=== PATIENT | female | born 1970 | race Caucasian/White ===

== ENCOUNTER 2019-12-11 07:51 | Outpatient (CLI) | payer OTHER, SELFPAY ==
--- NOTE | ~2019-12-11 | XR_ITS ---
EXAMINATION: XR hip LT min 3V w AP pelvis DATE: 12/11/2019 08:16 INDICATION: Left hip pain. TECHNIQUE: An anteroposterior view of the pelvis and 3 views of left hip were obtained. COMPARISON: Pelvis radiograph 01/16/2006 FINDINGS: Bone alignment is. No fracture. The hip joint spaces are normal. IMPRESSION: 1. Normal hips. Reviewed, dictated and finalized at location A. MILL OPERATOR IMPRESSION: 1. Normal hips.
[2019-12-11 09:33] LABS: Cholesterol 187 mg/dL (0-200); HDL Direct 40 mg/dL; Triglycerides 171 mg/dL (<150)
[2019-12-11 09:44] LABS: LDL Cholesterol Direct 120 mg/dL
[2019-12-11 11:18] LABS: Vitamin D 25 Hydroxy 31.1 ng/mL
== END 2019-12-11 07:52 | disposition home or self-care (01) ==
LOC: ANHIMG 07:56
PROVIDERS: PCP Family Medicine; Visit Provider Orthopaedic Surgery
DX: M70.62 Trochanteric bursitis, left hip (principal); E55.9 Vitamin D deficiency, unspecified; Z13.220 Encounter for screening for lipoid disorders; Z13.1 Encounter for screening for diabetes mellitus
CPT/HCPCS: 36415; 73502; 80061; 82306

== ENCOUNTER 2021-03-20 09:34 | Outpatient (CLI) | payer OTHER, SELFPAY ==
[2021-03-20 10:28] LABS: Basophils Percent Auto 0.2 % (0.2-1.2); Eosinophils Absolute Auto 0.1 K/mm3 (0-0.3); Eosinophils Percent Auto 1.7 % (0-4.4); Hematocrit 44.3 % (37.0-47.0); Hemoglobin 14.3 g/dL (12.0-15.0); Immature Granulocyte Absolute 0.03 K/mm3 (0.00-0.031); Immature Granulocyte Percent A 0.5 % (0-0.5); Immature Platelet Fraction Pct 6.4 % (0.9-11.2); Lymphocytes Absolute Auto 1.38 K/mm3 (0.9-3.2); Lymphocytes Percent Auto 23.3 % (18.3-44.2); Mean Corpuscular HGB Conc 32.3 g/dl (32-36); Mean Corpuscular Hemoglobin 29.5 pg (26-34); Mean Corpuscular Volume 91.3 fl (80-100); Mean Platelet Volume 11.4 fl (7.4-10.4); Monocytes Absolute Auto 0.5 K/mm3 (0.1-0.6); Monocytes Percent Auto 8.1 % (2.6-8.5); Neutrophils Absolute Auto 3.9 K/mm3 (1.3-6.7); Neutrophils Percent Auto 66.2 % (45.5-73.1); Platelet Count Result 145 k/mm3 (150-375); Red Blood Count 4.85 M/mm3 (4.2-5.4); Red Cell Distribution Width 13.2 % (11.5-14.5); White Blood Count 5.9 K/mm3 (4.5-10.0)
[2021-03-20 10:41] LABS: Add Urine Microscopic? YES; Appearance Urine Clear (Clear); Bilirubin Urine Negative (Negative); Blood Urine Negative (Negative); Color Urine Yellow (Yellow); Glucose Urine UA Negative (Negative); Ketones Urine Negative (Negative); Leukocyte Esterase Ur Trace LEU/UL (Negative); Mucus Urine Rare /lpf; Nitrate Urine Negative (Negative); Protein Urine Negative (Negative); RBC Urine 0-2 /hpf (0-2); Specific Grav Ur 1.018 (1.001-1.035); Squamous Epithelial Cell Urine Occasional /hpf (Few); Urobilinogen Urine Negative mg/dL (<2.0); WBC Urine 0-3 /hpf
[2021-03-20 10:45] LABS: Alanine Aminotransferase 29 U/L (4-35); Albumin Level 4.5 g/dL (3.5-5.1); Alkaline Phosphatase 85 U/L (38-126); Anion Gap 10 mmol/L (8-16); Aspartate Amino Transferase 34 U/L (14-36); Bilirubin,Total 0.5 mg/dL (0.2-1.3); Blood Urea Nitrogen 14 mg/dL (7-17); Calcium 9.7 mg/dL (8.4-10.2); Carbon Dioxide 24 mmol/L (22-30); Chloride 112 mmol/L (98-107); Estimated Glomerular Filt Rate 59; Glucose 100 mg/dL (65-105); Potassium 4.3 mmol/L (3.4-5.0); Sodium 146 mmol/L (137-145)
== END 2021-03-20 09:35 | disposition home or self-care (01) ==
PROVIDERS: PCP Family Medicine; Visit Provider Family Medicine
DX: R10.9 Unspecified abdominal pain (principal)
CPT/HCPCS: 36415; 80053; 81001; 85025; 85055

== ENCOUNTER 2021-03-22 17:32 | Outpatient (CLI) | payer OTHER, SELFPAY ==
--- NOTE | ~2021-03-22 | CT_ITS ---
EXAMINATION: CT abdomen pelvis wo con DATE: 03/22/2021 17:55 INDICATION: Abdominal pain TECHNIQUE: Computed tomography (CT) of the abdomen and pelvis was performed without intravenous contr ast. The dose-length product was 1405.89 mGy-cm. . Automated exposure control and iterative reconstru ction technique were employed. COMPARISON: CT dated 11/28/2017. FINDINGS: Lung bases are unremarkable. Heart size is normal. No significant pleural or pericardial ef fusion. The liver, spleen, pancreas, adrenal glands are unremarkable. There are nonobstructing bilate ral renal stones. Gallbladder is present. Nonobstructive bowel gas pattern. There are colonic diverti cula with subtle pericolonic stranding, suspicious for mild acute diverticulitis. No evidence for per foration or abscess. No lymphadenopathy. Small amount of gas in the bladder, likely from recent instr umentation. Mild lumbar spondylosis. No acute osseous abnormality. IMPRESSION: 1. Mild uncomplicated sigmoid diverticulitis. 2: Nonobstructing bilateral nephrolithiasis. Reviewed, dictated and finalized at location B.
== END 2021-03-22 17:33 | disposition home or self-care (01) ==
LOC: ANHIMG 17:35
PROVIDERS: PCP Family Medicine; Visit Provider Family Medicine
DX: N20.0 Calculus of kidney (principal); K57.32 Diverticulitis of large intestine without perforation or abscess without bleeding
CPT/HCPCS: 74176

== ENCOUNTER 2021-06-27 18:42 | Emergency (ER) | payer OTHER, SELFPAY ==
--- NOTE | ~2021-06-27 | CT_ITS ---
EXAMINATION: CT abdomen pelvis wo con DATE: 06/27/2021 20:55 INDICATION: Right flank pain. Hematuria. Nausea. TECHNIQUE: Computed tomography (CT) of the abdomen and pelvis was performed without intravenous contr ast. Automated exposure control and iterative reconstruction technique were employed. Exam dose: 156 2.52 mGy-cm total exam DLP. COMPARISON: None. FINDINGS: Lung bases are clear of infiltrate or consolidation. Cardiomegaly. The liver, gallbladder, bile ducts, spleen, pancreas, pancreatic duct and adrenal glands are unremark able. No renal mass lesion is detected. There is an approximately 5 mm proximal right ureteral calculus with mild right pelviectasis and hydr onephrosis. There is suggestion of two very subtle pinpoint nonobstructing left renal calculi. Normal appendix. There are multiple colonic diverticula, primarily on the left. No evidence of diverticulitis. No luisa wel obstruction or intraperitoneal free air. The uterus, adnexal areas and urinary bladder are unremarkable. Normal caliber aorta. No intraperitoneal or retroperitoneal or pelvic mass lesion or adenopathy or as cites is detected. No suspicious osteolytic or osteoblastic lesions are noted. IMPRESSION: 5 mm proximal right ureteral calculus with mild right pelviectasis and hydronephrosis. There is suggestion of two very subtle pinpoint nonobstructing left renal calculi Diverticulosis of the colon Normal appendix. Reviewed, dictated and finalized at Location A. Reviewed, dictated and finalized at location A. IMPRESSION: 5 mm proximal right ureteral calculus with mild right pelviectasis and hydronephrosis. There is suggestion of two very subtle pinpoint nonobstructing left renal calcu li Diverticulosis of the colon Normal appendix.
--- NOTE | 2021-06-27 18:57 | ED.ABDPAIN ---
HPI - Abdominal Pain General Chief Complaint: Abdominal Pain Stated Complaint: Right lower side pain Time Seen by Provider: 06/27/21 19:08 Source: patient Mode of arrival: ambulatory Limitations: no limitations History of Present Illness HPI narrative: 51-year-old woman with a history of diverticulitis comes in today complaining right-sided flank and abdominal pain that started 3 days ago. Patient states that the pain has gotten gradually worse since that time. She complains of nausea and poor appetite. She last ate at 14:30 today. She denies fever, chills, vomiting, diarrhea, dysuria, hematuria, and prior similar pain. MD elicited complaint: abdominal pain Pertinent past history: kidney stones ( States she has stones in her kidneys but has never passed any.) Onset (ago): day(s) Pain Consistency: constant Location: RLQ Severity: severe Pain scale (0-10): 9 Quality: sharp Radiation: none Migration to: no migration Exacerbating factors: nothing Relieving factors: nothing Associated symptoms: nausea Treatments prior to arrival: NSAIDs Related Data Home Medications Medication Instructions Recorded Confirmed doxycycline hyclate 50 mg tablet 50 mg PO DAILY 01/27/20 06/27/21 topiramate 50 mg tablet 100 mg PO BID 01/27/20 06/27/21 Allergies Allergy/AdvReac Type Severity Reaction Status Date / Time acetaminophen Allergy Unknown Unknown Unverified 06/27/21 19:01 Penicillins Allergy Unknown Swelling Verified 06/27/21 19:01 Sulfa (Sulfonamide Allergy Unknown Redness of Verified 06/27/21 19:01 Antibiotics) Skin latex Allergy Redness of Verified 06/27/21 19:01 Skin propoxyphene Allergy BURNING Verified 06/27/21 19:01 [From Darskylart-N] PROPOXYPHENE NAPSYLATE Allergy Unknown Unknown Uncoded 06/27/21 19:01 Review of Systems Constitutional: Constitutional: Denies chills, Denies fever(s) and Denies weakness Eyes: Eyes: Denies change in vision and Denies photophobia ENT: Denies dysphagia, Denies nasal congestion and Denies sore throat Cardiovascular: Cardiovascular: Denies chest pain and Denies radiating jaw, neck or arm pain Respiratory: Respiratory: Denies cough and Denies dyspnea Gastrointestinal: Gastrointestinal: Reports abdominal pain, Denies diarrhea, Reports nausea and Denies vomiting Genitourinary: Genitourinary: Denies hematuria, Denies nocturia and Denies dysuria Musculoskeletal: Musculoskeletal: Denies back pain, Denies arthralgias and Denies joint swelling Integumentary/Breasts: Skin/Breast: Denies pruritus, Denies erythema and Denies rash Neurologic: Denies vertigo, Denies dizziness and Denies syncope Hematologic/Lymphatic: Hematologic/Lymphatic: Denies easy bleeding and Denies easy bruising Allergic/Immunologic: Allergic/Immunologic: Denies lip swelling and Denies throat swelling PMFSH Past Medical History Medical History Diverticulitis Surgical History Surgical History H/O prior ablation treatment uterine 2006 H/O tubal ligation 1998 Family History Family History Mother Diabetes mellitus Hypertension Father Cancer Grandparent Cancer Social History Social History Smoking status: Never smoker Alcohol intake: never Additional occupation/education comments: [employer] Gender identity (if verbalized by the patient): Female Exam Const: General: healthy appearing and alert Orientation/consciousness: patient oriented x3 Limitations: no limitations Other: moderate acute distress. Eyes: Conjunctivae: conjunctivae normal Pupils: Equal, round and reactive pupils present EOM: EOMs intact bilaterally Resp: Effort & Inspection: normal respiratory effort and not labored Auscultation: clear to auscultation bilaterally,
[2021-06-27 18:58] VITALS: BP 154/99; PULSE 94; RESP 20; TEMP 36.6; O2SAT 100
[2021-06-27 19:32] LABS: Basophils Absolute Auto 0.01 K/mm3 (0.00-0.10); Basophils Percent Auto 0.2 % (0.0-1.0); Eosinophils Absolute Auto 0.09 K/mm3 (0.02-0.50); Eosinophils Percent Auto 1.5 % (1.0-6.0); Hematocrit 42.3 % (35.0-49.0); Hemoglobin 13.9 g/dL (12.0-15.0); Immature Granulocyte Absolute 0.02 K/mm3 (0.00-0.00); Immature Granulocyte Percent A 0.3 % (0.0-0.0); Immature Platelet Fraction Pct 3.9 % (1.0-7.0); Lymphocytes Absolute Auto 1.38 K/mm3 (1.10-4.50); Lymphocytes Percent Auto 22.4 % (18.0-42.0); Mean Corpuscular HGB Conc 32.9 g/dL (32.0-36.0); Mean Corpuscular Hemoglobin 29.6 pg (27.0-31.0); Mean Corpuscular Volume 90.2 fL (78.0-102.0); Mean Platelet Volume 10.9 fl (9.2-11.8); Monocytes Absolute Auto 0.52 K/mm3 (0.10-0.90); Monocytes Percent Auto 8.4 % (2.0-11.0); Neutrophils Absolute Auto 4.2 K/mm3 (1.7-7.2); Neutrophils Percent Auto 67.2 % (50.0-70.0); Platelet Count Result 126 K/mm3 (150-420); Red Blood Count 4.69 M/mm3 (4.20-5.40); Red Cell Distribution Width 13.4 % (11.6-14.4); White Blood Count 6.2 K/mm3 (4.8-10.8)
[2021-06-27] MEDS: SODIUM CHLORIDE 0.9% IV 1,000 ML 999 ML IV CONT (19:41)
[2021-06-27] MEDS: HYDROmorphone HCL INJ (*CRX) 2 MG/ML VIAL 0.5 MG IV PUSH ×2 (19:42→22:18)
[2021-06-27] MEDS: ONDANSETRON INJ 4 MG/2 ML VIAL IV PUSH (19:42)
[2021-06-27 19:45] LABS: Add Urine Microscopic? YES; Appearance Urine Clear (Clear); Bilirubin Urine Negative (Negative); Blood Urine 3+ (Negative); Color Urine Light Yellow (Yellow); Glucose Urine UA Negative (Negative); Ketones Urine Negative (Negative); Leukocyte Esterase Ur 1+ (Negative); Nitrate Urine Negative (Negative); Protein Urine Trace (Negative); Specific Grav Ur 1.025 (1.010-1.020); Urobilinogen Urine 0.2 mg/dL (0.2-1.0)
[2021-06-27 19:45] LABS: Alanine Aminotransferase 49 U/L (14-59); Albumin Level 4.1 g/dL (3.4-5.0); Alkaline Phosphatase 87 U/L (46-116); Anion Gap 14 mmol/L (8-16); Aspartate Amino Transferase 29 U/L (15-37); Bilirubin,Total 0.4 mg/dL (0.00-1.00); Blood Urea Nitrogen 16 mg/dL (7-18); Calcium 9.5 mg/dL (8.5-10.1); Carbon Dioxide 24 mmol/L (21-32); Chloride 108 mmol/L (98-108); Estimated CRCL calculation 72 ml/min; Estimated Glomerular Filt Rate 53; Glucose 107 mg/dL (70-99); Lipase 94 U/L (73-393); Osmolality Calculated 303 mOsm/kg (285-295); Potassium 3.5 mmol/L (3.5-5.1); Sodium 146 mmol/L (136-145); Total Protein 7.1 g/dL (6.4-8.2)
[2021-06-27 19:49] LABS: WBC Urine 0-3 /hpf (0-3)
[2021-06-27 19:50] LABS: Bacteria Urine Trace /hpf; Squamous Epithelial Cell Urine Rare /hpf (Few)
[2021-06-27 19:51] LABS: Lactic Acid Reflex 0.7 mmol/L (0.4-2.0)
[2021-06-27 20:31] LABS: SARS-CoV-2 Ag Negative (Negative)
[2021-06-27] MEDS: KETOROLAC 30 MG/ML VIAL (*BKC) IV PUSH (22:18)
[2021-06-27 22:44] VITALS: RESP 20; O2SAT 98
== END 2021-06-27 22:35 | disposition home or self-care (01) ==
PROVIDERS: Emergency Provider Emergency Medicine; PCP Family Medicine
DX: N20.1 Calculus of ureter (principal); Z20.822 Contact with and (suspected) exposure to COVID-19
CPT/HCPCS: 36415; 74176; 80053; 81001; 83605; 83690; 85025; 85055; 87426; 96361; 96374; 96375; 96376; 99283; 99284; C9803; J1170; J1885; J2405; J7030

== ENCOUNTER 2022-07-19 08:28 | Outpatient (CLI) | payer OTHER, SELFPAY ==
--- NOTE | ~2022-07-19 | MM_ITS ---
EXAMINATION: MM screening willem BI w cheryl HISTORY: Screening mammogram TECHNIQUE: Craniocaudal and mediolateral oblique 3-D tomosynthesis images were obtained and synthetic 2-D images were generated. CAD analysis was submitted and interpreted. COMPARISON: 07/30/2013 BREAST PARENCHYMAL COMPOSITION: The breasts are almost entirely fatty. FINDINGS: No suspicious mass, calcification, or architectural distortion are identified in either aniceto ast to suggest malignancy. There has been no suspicious interval change. IMPRESSION: 1. No mammographic evidence of malignancy. 2. Recommend routine screening mammography in one year. BI-RADS Category 1: Negative Reviewed, dictated and finalized at location B.
== END 2022-07-19 08:29 | disposition home or self-care (01) ==
PROVIDERS: PCP Family Medicine; Visit Provider Family Medicine
DX: Z12.31 Encounter for screening mammogram for malignant neoplasm of breast (principal)
CPT/HCPCS: 77063; 77067

== ENCOUNTER 2022-07-20 09:14 | Outpatient (CLI) | payer OTHER, SELFPAY ==
[2022-07-20 09:54] LABS: Anion Gap 11 mmol/L (8-16); Blood Urea Nitrogen 13 mg/dL (7-17); Calcium 9.2 mg/dL (8.4-10.2); Carbon Dioxide 23 mmol/L (22-30); Chloride 112 mmol/L (98-107); Cholesterol 166 mg/dL (0-200); Estimated Glomerular Filt Rate 59; Glucose 111 mg/dL (65-110); HDL Direct 40 mg/dL; Potassium 4.2 mmol/L (3.4-5.0); Sodium 146 mmol/L (137-145); Triglycerides 123 mg/dL (<150)
[2022-07-20 10:10] LABS: LDL Cholesterol Direct 99 mg/dL
[2022-07-20 10:12] LABS: Hemoglobin A1C 5.8 % (<5.7)
[2022-07-20 10:33] LABS: Basophils Percent Auto 0.2 % (0.2-1.2); Eosinophils Absolute Auto 0.1 K/mm3 (0-0.3); Eosinophils Percent Auto 1.4 % (0-4.4); Hematocrit 43.6 % (37.0-47.0); Hemoglobin 14.4 g/dL (12.0-15.0); Immature Granulocyte Absolute 0.03 K/mm3 (0.00-0.031); Immature Granulocyte Percent A 0.6 % (0-0.5); Immature Platelet Fraction Pct 5.4 % (0.9-11.2); Lymphocytes Absolute Auto 1.13 K/mm3 (0.9-3.2); Lymphocytes Percent Auto 22.6 % (18.3-44.2); Mean Corpuscular Hemoglobin 30.1 pg (26-34); Mean Platelet Volume 11.7 fl (7.4-10.4); Monocytes Absolute Auto 0.4 K/mm3 (0.1-0.6); Monocytes Percent Auto 8.6 % (2.6-8.5); Neutrophils Absolute Auto 3.3 K/mm3 (1.3-6.7); Neutrophils Percent Auto 66.6 % (45.5-73.1); Platelet Count Result 135 k/mm3 (150-375); Red Blood Count 4.79 M/mm3 (4.2-5.4); Red Cell Distribution Width 13.6 % (11.5-14.5)
[2022-07-20 11:01] LABS: Folic Acid 7.4 ng/mL (2.76->20)
[2022-07-20 11:37] LABS: Iron 68 ug/dL (37-170)
[2022-07-20 11:45] LABS: Vitamin D 25 Hydroxy 30.3 ng/mL
[2022-07-20 11:47] LABS: Percent Iron Saturation 21 % (20-50)
== END 2022-07-20 09:15 | disposition home or self-care (01) ==
PROVIDERS: PCP Family Medicine; Visit Provider Family Medicine
DX: E55.9 Vitamin D deficiency, unspecified (principal); L65.9 Nonscarring hair loss, unspecified; Z00.00 Encounter for general adult medical examination without abnormal findings; R53.83 Other fatigue; R73.9 Hyperglycemia, unspecified; Z13.1 Encounter for screening for diabetes mellitus; Z13.220 Encounter for screening for lipoid disorders
CPT/HCPCS: 36415; 80048; 80061; 82306; 82607; 82728; 82746; 83036; 83540; 83550; 83735; 84443; 85025; 85055

== ENCOUNTER 2022-07-23 01:31 | Day surgery (SDC) | payer OTHER, SELFPAY ==
[2022-07-05 13:17] VITALS: BMI 45.1
[2022-07-23 09:48] VITALS: BP 153/83; PULSE 80; RESP 18; TEMP 36.4; O2SAT 100; BMI 45.2
--- NOTE | 2022-07-23 09:51 | P.PNAN_ITS ---
Anes - Initial Pre Proc Eval Procedure: Operation Date: 07/23/22 11:00 Proposed Procedures p Screening Colonoscopy - Nilesh Sigala MD Date/Time: 07/23/22 09:51 Surgeon: Nilesh Sigala MD Pre Op Diagnosis: neoplasm screening Patient Data Age: 52 Gender: F Height: 1.68 m Weight: 127.2 kg Last Vital Signs Temp 97.6 F 07/23/22 09:48 Pulse 80 07/23/22 09:48 Resp 18 07/23/22 09:48 BP 153/83 H 07/23/22 09:48 Pulse Ox 100 07/23/22 09:48 O2 Del Method Room Air 07/23/22 09:48 Allergies Allergy/AdvReac Type Severity Reaction Status Date / Time Penicillins Allergy Unknown Swelling Verified 07/23/22 09:47 Sulfa (Sulfonamide Allergy Unknown Redness of Verified 07/23/22 09:47 Antibiotics) Skin latex Allergy Redness of Verified 07/23/22 09:47 Skin propoxyphene Allergy BURNING Verified 07/23/22 09:47 [From Darvocet-N] PROPOXYPHENE NAPSYLATE Allergy Unknown Unknown Uncoded 06/27/21 19:01 Home Medications Medication Instructions Recorded Confirmed Type doxycycline hyclate 50 mg tablet 50 mg PO DAILY 01/27/20 07/23/22 History topiramate 50 mg tablet (Topamax) 100 mg PO DAILY 01/27/20 07/23/22 History ibuprofen 800 mg tablet 800 mg PO TID PRN Pain 07/05/22 07/23/22 History Patient hx anesthesia problems: none Family hx anesthesia problems: none Results Review: All pre-operative results and documents have been reviewed as part of the pre- operative evaluation. [facility] Past Medical History Medical History Diverticulitis Surgical History Surgical History H/O prior ablation treatment uterine 2005 H/O tubal ligation 1998 Family History Family History Mother Diabetes mellitus Hypertension Father Cancer Grandparent Cancer Social History Social History Smoking status: Never smoker Alcohol intake: never Substance use type: does not use Living arrangements: with family Additional occupation/education comments: [employer] Gender identity (if verbalized by the patient): Female Anes - Eval Final PreProcedure Day of Procedure 07/23/22 09:51 Patient weight: morbidly obese Heart: regular rate and rhythm Lungs: clear to auscultation Airway: Mallampati scale class II Neurological: alert and oriented Last oral intake: >/= 8 hours ASA classification: III Emergent: no Anesthetic plan: proceed Anesthesia type and monitoring: general GIVS and standard monitoring Results Review: All pre-operative results and documents have been reviewed as part of the pre- operative evaluation. Informed Consent: The patient's anesthetic plan and its attendant risks and benefits were discussed with the patient/family/POA. Questions were solicited and answers provided to the satisfaction of the patient/family/POA.
[2022-07-23] MEDS: LACTATED RINGERS 1,000 ML 150 ML IV CONT (10:00)
--- NOTE | 2022-07-23 10:28 | PM.HPGS ---
History of Present Illness History of Present Illness Consent: Risks, benefits, and alternatives have been discussed and questions answered. Patient agrees to proceed with procedure. Chief complaint: neoplasm screening Narrative: Yoanna Cherry is a 52 year old female here for first screening colonoscopy Review of Systems Constitutional: Constitutional: Denies headache(s) and Denies weakness Eyes: Eyes: Denies blurry vision ENT: Reports Normal hearing present, Denies headache(s) and Denies neck pain Cardiovascular: Cardiovascular: Denies chest pain and Denies dyspnea Respiratory: Respiratory: Denies dyspnea Gastrointestinal: Gastrointestinal: Reports no additional gastrointestinal complaints Genitourinary: Genitourinary: Denies dysuria Musculoskeletal: Musculoskeletal: Denies neck pain Integumentary/Breasts: Skin/Breast: Denies dry skin Neurologic: Reports Normal hearing present, Denies headache(s) and Denies weakness Psychiatric: Psychiatric: Denies anxiety Endocrine: Endocrine: Denies change in body appearance Hematologic/Lymphatic: Hematologic/Lymphatic: Denies easy bleeding Allergic/Immunologic: Allergic/Immunologic: Denies urticaria PMFSH Past Medical History Medical History (Updated 07/23/22 @ 10:28 by Nilesh Sigala MD) Colon cancer screening Diverticulitis Surgical History Surgical History H/O prior ablation treatment uterine 2006 H/O tubal ligation 1998 Family History Family History Mother Diabetes mellitus Hypertension Father Cancer Grandparent Cancer Social History Social History Smoking status: Never smoker Alcohol intake: never Substance use type: does not use Living arrangements: with family Additional occupation/education comments: [employer] Gender identity (if verbalized by the patient): Female Meds Home Medications and Allergies Home Medications Medication Instructions Recorded Confirmed Type doxycycline hyclate 50 mg tablet 50 mg PO DAILY 01/27/20 07/23/22 History topiramate 50 mg tablet (Topamax) 100 mg PO DAILY 01/27/20 07/23/22 History ibuprofen 800 mg tablet 800 mg PO TID PRN Pain 07/05/22 07/23/22 History Allergies Allergy/AdvReac Type Severity Reaction Status Date / Time Penicillins Allergy Unknown Swelling Verified 07/23/22 09:47 Sulfa (Sulfonamide Allergy Unknown Redness of Verified 07/23/22 09:47 Antibiotics) Skin latex Allergy Redness of Verified 07/23/22 09:47 Skin propoxyphene Allergy BURNING Verified 07/23/22 09:47 [From Darvocet-N] PROPOXYPHENE NAPSYLATE Allergy Unknown Unknown Uncoded 06/27/21 19:01 Vital Signs Vital Signs - 24 hr 07/23/22 09:48 Temperature 97.6 F Pulse Rate 80 Respiratory Rate 18 Blood Pressure 153/83 H Pulse Oximetry 100 Oxygen Delivery Room Air Exam Const: General: comfortable and no acute distress HENMT: Face/Nose/Sinus: Normal nares present Eyes: General: appearance normal, both eyes and all related structures Neck: Neck: no JVD Resp: Auscultation: clear to auscultation bilaterally Cardio: Rate: regular rate Rhythm: regular rhythm GI: Inspection: non-distended GI Palp: Yes Soft to palpation Skin: General skin exam: normal color Neuro: General: gait normal Speech: normal speech Extrem: General: normal to inspection Psych: Mental Status: mental status grossly normal Assessment and Plan Assessment and plan (1) Colon cancer screening: Code(s): Z12.11 - Encounter for screening for malignant neoplasm of colon Status: Acute Assessment and Plan: colonoscopy
[2022-07-23 10:56] VITALS: BP 107/65; PULSE 82; RESP 17; O2SAT 94
[2022-07-23 11:06] VITALS: BP 121/76; PULSE 71; RESP 16; O2SAT 99
[2022-07-23 11:16] VITALS: BP 120/81; PULSE 70; RESP 23; O2SAT 99
== END 2022-07-23 11:38 | disposition home or self-care (01) ==
PROVIDERS: PCP Family Medicine; Visit Provider Internal Medicine Gastroenterology
PROC: 0DJD8ZZ Inspection of Lower Intestinal Tract, Via Natural or Artificial Opening Endoscopic (ICD-10-PCS; CPT 45378; principal; 2022-07-23 11:00)
DX: Z12.11 Encounter for screening for malignant neoplasm of colon (principal); D12.0 Benign neoplasm of cecum; D12.3 Benign neoplasm of transverse colon; K57.30 Diverticulosis of large intestine without perforation or abscess without bleeding; D17.5 Benign lipomatous neoplasm of intra-abdominal organs; K64.8 Other hemorrhoids; E66.01 Morbid (severe) obesity due to excess calories; Z68.42 Body mass index [BMI] 45.0-49.9, adult
CPT/HCPCS: 45385; 88305; J2704; J7120

== ENCOUNTER 2022-09-05 08:00 | Outpatient (RCR) | payer OTHER, SELFPAY ==
--- NOTE | 2022-07-03 12:07 | PTOPEVAL1 ---
Assessment and note entered by Roxane Hester, PT Evaluation Information Assessment Status Evaluation Diagnosis back pain Onset 1997 Subjective Information notes pain started not long after birthing daughter. MRI 7 years ago, mild DDD & OA No formal Physical therapy for issue Reported Pain Level Pain Score 2: Self Report Assessment PT Clinical Summary Pt presents w/ c/o chronic low back pain for 20+ years and recently bilat hip pain. Reports diagnosis of DDD and OA, history of sciatica R/L, most recent MRI 7 years ago. Rarely has required Toradol shot secondary to back/leg locking up . Has not had formal therapy for this problem, just exercises from her Occupational Therapist friend. Pt reports pain edwar with sit>stand, with walking/ standing long periods, and initially upon waking in the morning. Demo's tenderness to bilat trochanteric bursa, glute med, piriformis R>L, (+) muscle tone bilat glutes, piri, QL, lumbar paraspinals R>L. Evaluation also shows possible RLE length discrepancy ~0.5 longer than left, hypermobility lumbar spine, R outflared inominate, severely decreased transverse abdominal strength, decreased strength lumbopelvic stabilizers. 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 Today pt was educated on findings, was educated on and performed initial HEP, educated on use of cryotherapy to reduce inflammation, and increased duration of therapy likely necessary to reduce pain fully considering chronic nature of issue. Pt will greatly benefit from therapy to address above findings, decrease pain, and improve functional abilities. Plan of Care Interventions Electrical Stimulation,Hot Pack/Cold Pack,Manual Therapy,Neuro Re-education,Therapeutic Activities, Therapeutic Exercise,Other Other Interventions Consider SI belt vs LSO, RLE heel lift PT Services Indicated Yes These treatments will address the objective and functional deficits as defined above. The patient will be advanced safely and appropriately in order for the patient to progress towards his/her prior level of function. Additional exercises will be introduced and as well as a comprehensive home exercise program upon discharge, if needed, ?to ensure carryover of functional gains achieved in the clinic. This treatment plan has been reviewed and agreement upon by the patient.
--- NOTE | 2022-08-08 16:31 | PTOPEVAL1 ---
Assessment and note entered by Roxane Hester, PT Progress Information Assessment Status Progress Report Diagnosis back pain Onset 1997 Subjective Information Pt reports has noted improvemetn since starting therapy. Reports she has more instances of 0/10 pain, less instances of 10/10 pain, and when 10/10 occurs it resolves quickly. Also notes pain in legs has resolved but still has hip discomfort. Notes deep tissue work with therapy has helped a lot as well. Reported Pain Level Pain Score 0: Self Report Assessment PT Clinical Summary Pt has attended therapy consistently for her chronic back pain and reports significant improvement today. Reports instances of pain at 0/ 10 more often and 10/10 less often as well as decreased duration. Pt lumbar Active ROM is improved with less discomfort, core strength has improved significantly as well. Pt cont to have muscle tone and tenderness multiple areas, and overall strength and lumbar stability is still decreased. Thus pt would benefit from continued therapy to continue progressing strength, stability, addressing tissue extensibility and health, thus reducing pain and improving function overall. Plan of Care Interventions Hot Pack/Cold Pack,Manual Therapy,Neuro Re- education,Patient/Caregiver Educ.,Therapeutic Activities,Therapeutic Exercise,Self-Care/Home Management,Ultrasound Other Interventions Taping PT Services Indicated Yes Treatment Frequency and Cont 1-2x weekly x 4 weeks then reassessment Duration These treatments will address the objective and functional deficits as defined above. The patient will be advanced safely and appropriately in order for the patient to progress towards his/her prior level of function. Additional exercises will be introduced and as well as a comprehensive home exercise program upon discharge, if needed, ?to ensure carryover of functional gains achieved in the clinic. This treatment plan has been reviewed and agreement upon by the patient.
--- NOTE | 2022-08-15 10:33 | PCPTNOTE ---
Patient did not show up for scheduled appointment this date. Called Pt , there is no voicemail box set up, was unable to leave voicemail. This is Pt's first N/S.
--- NOTE | 2022-08-27 16:34 | PCPTNOTE ---
Patient called & cancelled scheduled appointment this date due to work.
--- NOTE | 2022-09-03 07:57 | PCPTNOTE ---
Pt did not have this appointment on her schedule. Cancelled due to error.
--- NOTE | 2022-09-05 10:15 | PTOPREEVAL ---
Assessment and note entered by Brandan Hester, PT Evaluation Information Assessment Status Re-evaluation Diagnosis back pain Onset 1997 Subjective Information Patient reports she is still having her back lock up on her, but not as bad as 3 weeks ago. She reports she will be seeing the MD on 09/11/22 and ask for a shot of toradol at that time. She has her chilean ball , but has not pumped it up to do her exercises at home. Patient reports it is better than when she started, but can still be severe in symptoms Reported Pain Level Pain Score 5: Self Report Additional Pain Score Comments Main pain is in the back, but also having pain along her L IT band and CASEY wrists which she attributed to carpal tunnel Assessment PT Clinical Summary Yoanna has been coming into the clinic for physical therapy since . She has attended 11 visits with improvements in decreasing the time in severe pain, but not being in severe pain when she feels it. Patient reports she is interested in a Toradol shot to help her feel better. She reports she has had it before with the last one she thinks in December of this year and that does help her for quite a while. Patient has met 3/4 of her goals. Patient should benefit from continued skilled physical therapy for her back pain, but did tell patient that although she does not want to take time off work, she might want to look into either therapy or surgical interventions for her carpal tunnel as it does affect what we can and cannot do for exercises and treatments for the low back. Also that she needs to do her swissball exercises at home also. Plan of Care Interventions Electrical Stimulation,Gait Training,Hot Pack/Cold Pack,Manual Therapy,Mechanical Traction,Neuro Re- education,Patient/Caregiver Education,Therapeutic Activities,Therapeutic Exercise,Ultrasound PT Services Indicated Yes Treatment Frequency and 1-2x/wk for 4 weeks Duration These treatments will address the objective and functional deficits as defined above. The patient will be advanced safely and appropriately in order for the patient to progress towards his/her prior level of function. Additional exercises will be introduced and as well as a comprehensive home exercise program upon discharge, if needed, ?to ensure carryover of functional gains achieved in the clinic. This treatment plan has been reviewed and agreement upon by the patient.
--- NOTE | 2022-11-26 13:38 | PCPTNOTE ---
Admitting Provider: Attending Provider: Chloe King, Patient:Yoanna Cherry Date of :1970 Patient has not returned for any further treatments since 09/05/2022, therefore (he/she) will be discharged at this time. Patient?s initial visit was on 07/03/2022 10:30 and (he/she) had a total of __11 visits. The goals have been partially met. Thank you for referring this patient to [facility]. Please review, sign, date and return this discharge summary BRIGID. I have been updated about the patient's current status and I agree with discharge from the above service at this time. Referring Physician Date
== END 2022-10-01 23:59 | disposition home or self-care (01) ==
LOC: ANHPT 08:00
PROVIDERS: PCP Family Medicine; Visit Provider Family Medicine
DX: M54.50 Low back pain, unspecified (principal)
CPT/HCPCS: 97014; 97110; 97112; 97140; 97162; 97530; 99199; G0283

== ENCOUNTER 2022-10-01 13:40 | Emergency (ER) | payer OTHER, SELFPAY ==
[2022-10-01 14:02] VITALS: BP 165/86; PULSE 115; RESP 16; TEMP 36.8; O2SAT 99
--- NOTE | 2022-10-01 14:57 | ED.SKABFB ---
HPI - Skin/Abscess/Foreign Bdy General Chief complaint: Skin/Abscess/Foreign Body Stated complaint: Lacerationt Left Hand Source: patient Mode of arrival: ambulatory Limitations: no limitations History of Present Illness HPI narrative: 52-year-old female presents to [facility] with complaints of laceration to the webbing of her left hand which occurred prior to arrival. Patient reports that she was using a pocket knife to work on [employer] with the knife slipped and lacerated her left hand. Patient is unsure of her last tetanus shot per reports that she does not want a tetanus shot at this time will discuss that with her primary care provider. Patient denies numbness, tingling, heavy bleeding or decreased range of motion to her left hand. MD complaint: laceration Onset (ago): hour(s) (2) Tetanus up to date: unsure Location: L hand (webbing ) Exacerbating factors: none Context: none Associated symptoms: denies other symptoms Related Data Home Medications Medication Instructions Recorded Confirmed doxycycline hyclate 50 mg tablet 50 mg PO BID 01/27/20 10/01/22 ibuprofen 800 mg tablet 800 mg PO TID PRN Pain 07/05/22 10/01/22 liraglutide (weight loss) 3 mg/0.5 0.6 mg subcut DAILY 10/01/22 10/01/22 mL (18 mg/3 mL) subcut pen injector (Saxenda) Allergies Allergy/AdvReac Type Severity Reaction Status Date / Time latex Allergy Intermediate Redness of Verified 10/01/22 14:12 Skin Penicillins Allergy Intermediate Swelling Verified 10/01/22 14:12 propoxyphene Allergy Intermediate BURNING Verified 10/01/22 14:12 [From Darvocet-N] Sulfa (Sulfonamide Allergy Intermediate Redness of Verified 10/01/22 14:12 Antibiotics) Skin Review of Systems Constitutional: Constitutional: Denies chills, Denies fatigue, Denies fever(s) and Denies weakness ENT: Denies vertigo and Denies dizziness Respiratory: Respiratory: Denies wheezing Gastrointestinal: Gastrointestinal: Denies diarrhea, Denies nausea and Denies vomiting Integumentary/Breasts: Skin/Breast: Denies erythema, Denies rash and Denies skin ulcer Comments: laceration to webbing of left hand Neurologic: Denies dizziness, Denies syncope and Denies headache(s) [facility] Past Medical History Medical History Colon cancer screening Diverticulitis Surgical History Surgical History H/O prior ablation treatment uterine 2006 H/O tubal ligation 1998 Family History Family History Mother Diabetes mellitus Hypertension Father Cancer Grandparent Cancer Social History Social History Smoking status: Never smoker Alcohol intake: never Substance use type: does not use Additional occupation/education comments: [employer] Gender identity (if verbalized by the patient): Female Comments At time of signature, I agree with nursing past medical, surgical, social and family history. There is no relevant family history pertinent to the presenting complaint. Exam Const: General: healthy appearing and no acute distress Nutritional Appearance: well nourished Orientation/consciousness: patient oriented x3 Limitations: no limitations Neck: Neck: normal visual inspection Resp: Effort & Inspection: normal respiratory effort and not labored Auscultation: clear to auscultation bilaterally, no crackles, no rales, no rhonchi and no wheezes Cardio: Rate: regular rate Rhythm: regular rhythm Heart sounds: no murmurs Skin: General skin exam: normal color Wounds: wounds noted 0.8cm punctre wound noted to webbing of left hand. Wound edges well approximate. No active bleeding or drainage noted. without odor; not malodorous and without any surrounding erythema Neuro: General: patient oriented x3 Psych: Affect: no
== END 2022-10-01 15:38 | disposition home or self-care (01) ==
PROVIDERS: Emergency Provider Nurse Practitioner Family; PCP Family Medicine
DX: S61.412A Laceration without foreign body of left hand, initial encounter (principal); W26.0XXA Contact with knife, initial encounter
CPT/HCPCS: 12001; 99212; G0463

== ENCOUNTER 2022-12-10 16:57 | Outpatient (CLI) | payer OTHER, SELFPAY ==
--- NOTE | ~2022-12-10 | MR_ITS ---
MRI of the lumbar spine Clinical History: Degenerative disc disease Technique: Axial T2-weighted images, and sagittal T1-weighted, T2-weighted, and T2 fat-sat images wer e acquired. COMPARISON: 12/20/2014 Findings: There is no fracture or subluxation of the lumbar spine. Osseous alignment is unchanged. No bone marrow signal abnormality identified. At L1-L2, there is no significant disc bulge or herniation. There is minimal facet joint hypertrophy. No spinal canal stenosis or neural foraminal narrowing. At L2-L3, there is minimal degenerative disc narrowing with minimal disc bulge and minimal facet hype rtrophy. No spinal canal stenosis or neural foraminal narrowing. L3-L4, there is minimal disc bulge and minimal facet joint hypertrophy. No gena spinal canal stenosi s or neural foraminal narrowing. At L4-L5, there is mild disc bulge with facet arthropathy. No gena spinal canal stenosis. There is m ild left neural foraminal narrowing. Right neural foramen preserved. At L5-S1, there is minimal disc bulge. No spinal canal stenosis. There is mild left neural foraminal narrowing. Paravertebral soft tissues are unremarkable. Impression: Minimal degenerative spondylosis overall. There is mild left neural foraminal narrowing at L4-L5 and L5-S1. Reviewed, dictated and finalized at location M. ISTRY LECTURER Impression: Minimal degenerative spondylosis overall. There is mild left neural foraminal n arrowing at L4-L5 and L5-S1.
== END 2022-12-10 16:58 | disposition home or self-care (01) ==
LOC: ANHIMG 17:00
PROVIDERS: PCP Family Medicine; Visit Provider Family Medicine
DX: M51.36 Other intervertebral disc degeneration, lumbar region (principal); M47.896 Other spondylosis, lumbar region
CPT/HCPCS: 72148

== ENCOUNTER 2023-02-01 11:11 | Outpatient (CLI) | payer OTHER, SELFPAY ==
--- NOTE | 2023-02-05 15:10 | WPDHOMESLEEP ---
Sleep Study - Home Unattended Date of Study: 02/01/23 Ordering Provider: Chloe King, Interpreting Provider: Shira Vergara, DO Home Sleep Study Type: Watch PAT Height: 1.68 m Neck Circumference (inches): 16 [place]: 2 Reason for Sleep Study snoring, teeth grinding, oxygen desats at night Sleep History The patient is a 52-year-old female with seasonal allergies, lumbar disc disease, sciatica and multiple occurrences of diverticulitis that had a sleep study ordered by her primary care for evaluation of sleep apnea. The patient occasionally awakens from sleep short of breath. She denies awakening at night with heartburn, belching or cough. She occasionally snores but it is never loud enough that others complain. She denies having trouble sleeping when she has a cold. She denies waking up gasping for air throughout the night. She denies having breathing problems at night observed by herself or others. She denies sweating excessively at night. She denies having heart palpitations or irregular heartbeats during the night. She denies falling asleep during the day and denies falling asleep while driving. She denies sleep paralysis, cataplexy and hypnagogic / hypnopompic hallucinations. She denies having trouble at school or work due to sleepiness. She denies feeling afraid of going to sleep. She denies having nightmares. She frequently remembers her dreams. She denies having thoughts racing through her mind. She denies feeling sad or depressed. She occasionally has anxiety. She denies having muscular tension. She denies noticing parts of her body jerk. She denies kicking during the night. She occasionally has crawling and aching feelings in her legs but rarely has leg pain during the night. She occasionally grinds her teeth during sleep and occasionally awakens with morning jaw pain. She is rarely bothered by pain during the day but never awakened by pain during the night. She constantly wakes up feeling stiff in the morning. She frequently wakes up with sore or achy muscles. She frequently wakes up with pain in the neck, spine or other joints. She goes to bed between 830 to 10:30 p.m. on both weekdays and weekends. She is able to fall asleep within 5 minutes. He wakes up 1-2 times throughout the night to let the dog out or to urinate. She is able fall back asleep within 5 minutes. She wakes up at 5:15 a.m. on weekdays and between 515-7 a.m. on the weekends. She typically gets 7-8 hours of sleep per night. She does not stay in bed after waking up in the morning. She currently lives with her . She does not consume any caffeinated beverages within 2 hours of bedtime. She does not engage in physical exercise before bedtime. She will read before falling asleep. She denies taking naps in the afternoon or the evening. She consumes 2-3 caffeinated beverages per day. She denies tobacco, alcohol and recreational drug use. [facility] Past Medical History Medical History Colon cancer screening Diverticulitis Surgical History Surgical History H/O prior ablation treatment uterine 2005 H/O tubal ligation 1998 Family History Family History Mother Diabetes mellitus Hypertension Father Cancer Grandparent Cancer Social History Social History Smoking status: Never smoker Alcohol intake: never Substance use type: does not use Living arrangements: with family Occupation/Education: occupation Additional occupation/education comments: [employer] Gender identity (if verbalized by the patient): Female Medications Home Medications Medication Instructions Recorded Confirmed Type doxycycline hyclate 50 mg tablet 50 mg PO BID 01/27/20
--- NOTE | 2023-02-05 15:31 | SLEEP ---
pt choice is to f/u with sleep dentist
== END 2023-02-04 12:00 | disposition home or self-care (01) ==
LOC: ANHCSM 11:12
PROVIDERS: PCP Family Medicine; Visit Provider Family Medicine
DX: G47.33 Obstructive sleep apnea (adult) (pediatric) (principal)
CPT/HCPCS: 95800

== ENCOUNTER 2023-03-28 12:02 | Outpatient (CLI) | payer OTHER, SELFPAY ==
--- NOTE | ~2023-03-28 | CT_ITS ---
EXAMINATION: CT abdomen pelvis wo con DATE: 03/28/2023 12:26 INDICATION: Abdominal pain. TECHNIQUE: Computed tomography (CT) of the abdomen and pelvis was performed without intravenous contr ast. Automated exposure control and iterative reconstruction technique were employed. The dose-length product was 1678.02 mGy-cm. COMPARISON: CT abdomen and pelvis 06/27/2021 FINDINGS: The visualized portions of the lung bases demonstrate mild atelectasis. No pleural effusion . The heart size is normal. No pericardial effusion. There is diffuse hepatic steatosis. The gallblad hansel, spleen, pancreas, adrenal glands, and right kidney are normal. There is a 1 mm stone in left kid wilman. There are scattered diverticula in the colon. There is fat stranding around a diverticulum of si gmoid colon, consistent with diverticulitis. There are no dilated loops of bowel. The appendix is nor mal. There are no pathologically enlarged lymph nodes. There is no free intraperitoneal fluid. There is mild thoracic and lumbar spondylosis. There is mild chronic anterior wedging of T12 and T11 verteb ral bodies. IMPRESSION: 1. Acute sigmoid diverticulitis. No perforation or abscess. Reviewed, dictated and finalized at location A.
== END 2023-03-28 12:03 | disposition home or self-care (01) ==
PROVIDERS: PCP Family Medicine; Visit Provider Family Medicine
DX: R10.9 Unspecified abdominal pain (principal); K57.32 Diverticulitis of large intestine without perforation or abscess without bleeding
CPT/HCPCS: 74176

== ENCOUNTER 2024-04-29 12:47 | Outpatient (CLI) | payer OTHER, SELFPAY ==
--- NOTE | 2024-04-29 14:00 | NEURO_ITS ---
Impression: # Complains of nocturnal paresthesia and numbness of hands. # Severe right Carpal Tunnel Syndrome. # Moderate left Carpal Tunnel Syndrome. # Left ulnar neuropathy around the elbow. # Needle/EMG exam neurogenic in right APB. Nerve Conduction Studies Anti Sensory Summary Table Stim Site NR Peak (ms) P-T Amp (?V) Site1 Site2 Delta-P (ms) Dist (cm) River (m/s) Left Median Anti Sensory (2-3nd Digit) Wrist 5.6 10.5 Wrist 2-3nd Digit 5.6 14.0 25 Wrist 6.2 30.2 Wrist 2-3nd Digit 5.6 14.0 25 Right Median Anti Sensory (2-3nd Digit) Wrist 5.0 11.9 Wrist 2-3nd Digit 5.0 14.0 28 Wrist 6.4 23.7 Wrist 2-3nd Digit 5.0 14.0 28 Left Radial Anti Sensory (Base 1st Digit) Wrist 1.9 28.5 Wrist Base 1st Digit 1.9 0.0 Right Radial Anti Sensory (Base 1st Digit) Wrist 2.0 30.9 Wrist Base 1st Digit 2.0 0.0 Left Ulnar Anti Sensory (5th Digit) Wrist 2.5 41.7 Wrist 5th Digit 2.5 14.0 56 Right Ulnar Anti Sensory (5th Digit) Wrist 2.4 50.7 Wrist 5th Digit 2.4 14.0 58 Motor Summary Table Stim Site NR Onset (ms) O-P Amp (mV) Site1 Site2 Delta-0 (ms) Dist (cm) River (m/s) Left Median Motor (Abd Poll Brev) Wrist 4.0 3.3 Elbow Wrist 3.7 26.0 70 Elbow 7.7 1.3 ELB/ADM Wrist 3.1 0.0 Right Median Motor (Abd Poll Brev) Wrist 7.7 1.7 Elbow Wrist 6.4 30.0 47 Elbow 14.1 1.5 Left Ulnar Motor (Abd Dig Minimi) Wrist 2.0 8.0 A Elbow Wrist 5.9 31.0 53 A Elbow 7.9 6.9 B Elbow Wrist 4.6 21.0 46 B Elbow 6.6 4.6 Right Ulnar Motor (Abd Dig Minimi) Wrist 2.5 8.6 A Elbow Wrist 5.5 31.0 56 A Elbow 8.0 6.9 F Wave Studies NR F-Lat (ms) L-R F-Lat (ms) Left Median (Mrkrs) (Abd Poll Brev) 30.69 0.48 Right Median (Mrkrs) (Abd Poll Brev) 31.17 0.48 Left Ulnar (Mrkrs) (Abd Dig Min) 28.50 0.27 Right Ulnar (Mrkrs) (Abd Dig Min) 28.23 0.27 EMG Side Muscle Nerve Root Ins Act Fibs Amp Dur Recrt Comment Right 1stDorInt Ulnar C8-T1 Nml Nml Nml Nml Nml Right Ext Indicis Radial (Post Int) C7-8 Nml Nml Nml Nml Nml Right Ext Digitorum Radial (Post Int) C7-8 Nml Nml Nml Nml Nml Right BrachioRad Radial C5-6 Nml Nml Nml Nml Nml Right PronatorTeres Median C6-7 Nml Nml Nml Nml Nml Right Abd Poll Brev Median C8-T1 Nml Nml Nml >12ms +3 Right ABD Dig Min Ulnar C8-T1 Nml Nml Nml Nml Nml Left 1stDorInt Ulnar C8-T1 Nml Nml Nml Nml Nml Left Ext Indicis Radial (Post Int) C7-8 Nml Nml Nml Nml Nml Left Ext Digitorum Radial (Post Int) C7-8 Nml Nml Nml Nml Nml Left BrachioRad Radial C5-6 Nml Nml Nml Nml Nml Left PronatorTeres Median C6-7 Nml Nml Nml Nml Nml Left Abd Poll Brev Median C8-T1 Nml Nml Nml Nml Nml Left ABD Dig Min Ulnar C8-T1 Nml Nml Nml Nml Nml MTDD
== END 2024-04-29 12:48 | disposition home or self-care (01) ==
LOC: ANHNEURO 12:49
PROVIDERS: PCP Family Medicine; Visit Provider Orthopaedic Surgery
DX: R20.0 Anesthesia of skin (principal); R20.2 Paresthesia of skin; G56.03 Carpal tunnel syndrome, bilateral upper limbs; G56.22 Lesion of ulnar nerve, left upper limb
CPT/HCPCS: 95886; 95911

== ENCOUNTER 2024-05-10 14:50 | Emergency (ER) | payer OTHER, SELFPAY ==
--- NOTE | ~2024-05-10 | XR_ITS ---
XR foot RT min 3V Ordering provider: ANNA Sosa History: . rt lateral foot pain s/p rolling 2 days ago . Comparison: None. FINDINGS: BONES: No acute fracture or dislocation. Metallic broken linear foreign body is noted opposite the pr oximal phalanx of the big toe medially. Calcaneal spur. JOINT SPACES: Normal. No tarsal coalition. SOFT TISSUES: Normal. IMPRESSION: No acute osseous abnormality of the right foot. Foreign body in the soft tissues opposite the proximal phalanx of the big toe medially. Reviewed, dictated and finalized at location A. IMPRESSION: No acute osseous abnormality of the right foot. Foreign body in the soft tissues opposite the proximal phalanx of the big toe m edially.
[2024-05-10 15:06] VITALS: BP 144/61; PULSE 86; RESP 16; TEMP 37.2; O2SAT 99
--- NOTE | 2024-05-10 15:29 | ED.LOWEXIN ---
HPI - Extremity Injury (Lower) General Chief Complaint: Extremity Injury, Lower Stated Complaint: right foot injury Time Seen by Provider: 05/10/24 15:23 Source: patient and RN notes reviewed Mode of arrival: ambulatory Limitations: no limitations History of Present Illness HPI Narrative: Patient presents today with an injury to her right foot. States 2 days ago she rolled it on a sidewalk while walking. Currently rates her pain 6/10 and has tried ibuprofen, compression wrap, and ice without much relief. States pain has slightly improved since onset. Related Data Home Medications Medication Instructions Recorded Confirmed doxycycline hyclate 50 mg tablet 50 mg PO BID 01/27/20 05/10/24 ibuprofen 800 mg tablet 800 mg PO TID PRN Pain 07/05/22 05/10/24 liraglutide (weight loss) 3 mg/0.5 0.6 mg subcut DAILY 10/01/22 05/10/24 mL (18 mg/3 mL) subcut pen injector (Saxenda) Allergies Allergy/AdvReac Type Severity Reaction Status Date / Time latex Allergy Intermediate Redness of Verified 05/10/24 14:54 Skin Penicillins Allergy Intermediate Swelling Verified 05/10/24 14:54 propoxyphene Allergy Intermediate BURNING Verified 05/10/24 14:54 [From Darvocet-N] Sulfa (Sulfonamide Allergy Intermediate Redness of Verified 05/10/24 14:54 Antibiotics) Skin Review of Systems Review of Systems: CONSTITUTIONAL: Denies body aches, fever, chills, or sweats. EYES: Denies visual changes, redness, or discharge. ENT: Denies rhinorrhea, congestion, sore throat, or otalgia. CARDIOVASCULAR: Denies chest pain, palpitations, or edema. RESPIRATORY: Denies cough or dyspnea. GASTROINTESTINAL: Denies abdominal pain, nausea, vomiting, or diarrhea. GENITOURINARY: Denies dysuria or hematuria. SKIN: Denies rash, itching, or wounds. MUSCULOSKELETAL: Denies back pain or myalgia.+ right foot injury NEUROLOGIC: Denies headache, numbness, tingling, or weakness. PSYCH: Denies depression or anxiety. [facility] Past Medical History Medical History Carpal tunnel syndrome, right Colon cancer screening Diverticulitis Surgical History Surgical History H/O prior ablation treatment uterine 2006 H/O tubal ligation 1998 Family History Family History Mother Diabetes mellitus Hypertension Father Cancer Grandparent Cancer Unknown Asthma Malignant neoplasm of prostate Social History Social History Social History: caffeine use Smoking status: Never smoker Alcohol intake: current Drinks per week: 1 Substance use type: does not use Living arrangements: with family Occupation/Education: occupation Additional occupation/education comments: [employer] Gender identity (if verbalized by the patient): Female Comments Reviewed Exam Narrative: GENERAL: Well-appearing, well-nourished, and in no acute distress. HEAD: Normocephalic, atraumatic. EYES: EOMI. No redness or drainage. Conjunctivae normal. ENT: Mucous membranes pink and moist. NECK: Normal AROM. CHEST: No respiratory distress. EXTREMITIES: Right foot: Tenderness to the lateral foot as well as the lateral portion of the plantar aspect of the foot. Also tenderness to the right 1st MTP. No edema, ecchymosis, erythema, or deformity noted to the foot. Distal sensation intact. Capillary refill normal. Pedal pulse normal. Full range of motion of the ankle in all toes. SKIN: Warm, dry, no rash. Capillary refill normal. Normal skin turgor. NEURO: No focal deficits. Alert and oriented x3. Gait steady. PSYCH: Normal affect. No signs of depression or anxiety. Course Course Level of Care: Express Care Visit Vital Signs Vital signs: Vital Signs Temperature 99.0 F 05/10/24 15:
== END 2024-05-10 16:26 | disposition home or self-care (01) ==
PROVIDERS: Emergency Provider Nurse Practitioner; PCP Nurse Practitioner Family
DX: S93.601A Unspecified sprain of right foot, initial encounter (principal); X50.9XXA Other and unspecified overexertion or strenuous movements or postures, initial encounter
CPT/HCPCS: 73630; 99213; G0463

== ENCOUNTER 2024-06-12 06:44 | Outpatient (CLI) | payer OTHER, SELFPAY ==
--- NOTE | ~2024-06-12 | MR_ITS ---
MRI of the right ankle Clinical history: Pain Technique: Coronal proton-density and proton-density fat-sat images, axial proton-density and proton- density fat-sat images, and sagittal proton-density and proton-density fat-sat images were acquired. Findings: Syndesmotic ligaments are intact. Anterior and posterior talofibular ligaments, and calcane ofibular ligament are intact. Deltoid ligament is intact. Medial flexor tendons are intact. Peroneus longus tendon, anterior extensor tendons, and Achilles tendon are intact. There is longitudinal split tear of the peroneus brevis tendon proximal to the level of the distal lateral malleolus tip. There is no osteochondral lesion of the talar dome. There is marrow edema of the cuboid with probable linear fracture line present. There are moderate degenerative changes of the second and third tarsom etatarsal joints.. Plantar fascia intact. Small plantar calcaneal spur present. No soft tissue mass or fluid collection evident. Impression: Nondisplaced cuboid fracture with surrounding marrow edema, possibly stress fracture versus acute pos ttraumatic fracture. Longitudinal split tear of the peroneus brevis tendon, as detailed above. Reviewed, dictated and finalized at [facility]. Impression: Nondisplaced cuboid fracture with surrounding marrow edema, possibly stress fra cture versus acute posttraumatic fracture. Longitudinal split tear of the peroneus brevis tendon, as detailed above.
== END 2024-06-12 06:45 | disposition home or self-care (01) ==
PROVIDERS: PCP Nurse Practitioner Family; Visit Provider Nurse Practitioner Family
DX: S92.214A Nondisplaced fracture of cuboid bone of right foot, initial encounter for closed fracture (principal); S86.391A Other injury of muscle(s) and tendon(s) of peroneal muscle group at lower leg level, right leg, initial encounter; M25.571 Pain in right ankle and joints of right foot; T14.90XA Injury, unspecified, initial encounter
CPT/HCPCS: 73721

== ENCOUNTER 2024-09-14 08:00 | Outpatient (RCR) | payer OTHER, SELFPAY ==
--- NOTE | 2024-08-17 09:08 | OPREHPOC ---
Outpatient Therapy Plan of Care This is a Multidisciplinary Plan of Care that may contain components documented by all disciplines (PT, OT, and ST.) PT Problem 1 PT Problem #1 Knowledge Deficit PT Goal 1 Goal / Goal Update [place] with HEP Target Visit 4 PT Problem 2 PT Problem #2 Impaired Range of Motion PT Goal 1 Goal / Goal Update Achieve 15+ degrees cosme ankle dorsiflexion motion for improved terminal stance of gait Target Visit 8 PT Problem 3 PT Problem #3 Impaired Strength PT Goal 1 Goal / Goal Update Improve cosme gross ankle strength to 5/5 to improve ankle stability with ADLs Target Visit 8 PT Goal 2 Goal / Goal Update Report no increased pain with stair navigation with improved ankle strengthening Target Visit 8 PT Problem 4 PT Problem #4 Pain PT Goal 1 Goal / Goal Update Report 20%+ improvement on LEFS scale for reduced ankle pain and dysfunction for ADL and work related activity Target Visit 8
--- NOTE | 2024-08-17 09:09 | PTOPEVAL1 ---
Assessment and note entered by Uziel Davies, PT Evaluation Information Assessment Status Evaluation Diagnosis M79.672 ICD-10 Condition Codes (PT) M25.572 Onset 05/10/24 Subjective Information Reports that she initially injured her right foot in April. She reports that her right foot is since doing better but her left foot started hurting immensely down the road following this incident. Reports that she had history of hairline fracture in her left heel. She gets pain both at rest and with activity. Up and down activity increases her pain. She has been wearing a neuropathy sock to help with the discomfort. Pain is all on lower ankle. Stairs are difficult for her. Currently on antibiotics and 800 Ibuprophen. Reported Pain Level Pain Score 2: Self Report Assessment PT Clinical Summary Patient presents with classic signs and symptoms of Achilles tendonitis on left Achilles. Noted cosme ankle restriction with lack of dorsiflexion and some minor stabilization weakness. Patient will benefit from skilled therapy to address deficits for normalization of gait and pain reduction. Plan of Care Interventions Electrical Stimulation,Gait Training,Hot Pack/Cold Pack,Manual Therapy,Neuro Re-education, Therapeutic Activities,Therapeutic Exercise Other Interventions Dry Needling PT Services Indicated Yes Treatment Frequency and 2x/week for 8 visits Duration These treatments will address the objective and functional deficits as defined above. The patient will be advanced safely and appropriately in order for the patient to progress towards his/her prior level of function. Additional exercises will be introduced and as well as a comprehensive home exercise program upon discharge, if needed, ?to ensure carryover of functional gains achieved in the clinic. This treatment plan has been reviewed and agreement upon by the patient.
--- NOTE | 2024-09-07 12:00 | PCPTNOTE ---
Called and canceled , schedule/ride issue. AKS
--- NOTE | 2024-09-14 09:02 | PTOPPROG ---
Assessment and note entered by Kriss Man, PT Progress Report Assessment Status Progress Diagnosis M79.672 ICD-10 Condition Codes (PT) M25.572 Onset 05/10/24 Subjective Information therapy is helping some; still having burning and pain-- want an MRI; still have some swelling in the ankle at the end of the day; PAIN: range in the past week 4-910; lateral malleoli, posterior to malleoli; constant burning increase pain: walking/standing about 1 hour, stretching decrease pain: ice, change positions, heat, elevate leg; ibuprofen PRN; use compression sock and wrap ankle with coban also have pain in back and R ankle stairs at home do not cause her any issues Assessment PT Clinical Summary Yoanna has received 7 PT sessions. Compared to the initial evaluation: pain from -06/23 to 4-06/23; constant burning posterior to lateral malleoli; LE functional scale rating from 36 to 15% limitation in activity; L ankle AROM is WNL, with inversion reports pain increase; good strength of ankle; reported pain after standing/walking 1 hour; education for HEP and pain control. The goals were partially met. Continue PT treatment, she is to follow up with dr with concerns about continued pain and burning. Plan of Care Interventions Electrical Stimulation,Gait Training,Hot Pack/Cold Pack,Manual Therapy,Neuro Re-education, Therapeutic Activities,Therapeutic Exercise Other Interventions Dry Needling PT Services Indicated Yes Treatment Frequency and 1-2x/wk for 6 visits Duration These treatments will address the objective and functional deficits as defined above. The patient will be advanced safely and appropriately in order for the patient to progress towards his/her prior level of function. Additional exercises will be introduced and as well as a comprehensive home exercise program upon discharge, if needed, ?to ensure carryover of functional gains achieved in the clinic. This treatment plan has been reviewed and agreement upon by the patient.
--- NOTE | 2024-10-08 11:26 | PTOPDC ---
Assessment and note entered by Kriss Man, PT Assessment Status Discharge - Pt Not Present Diagnosis M79.672 ICD-10 Condition Codes (PT) Pain in left ankle and joints of left foot M25.572 Onset 05/10/24 Subjective Information pt was not seen this date. Assessment PT Clinical Summary Yoanna has not returned since the progress report dated September 14. Discharge PT due to pt not attending. The goals were not addressed. Plan of Care PT Services Indicated No
== END 2024-10-08 17:09 | disposition home or self-care (01) ==
LOC: ANHPT 08:00
PROVIDERS: PCP Nurse Practitioner Family; Visit Provider Orthopaedic Surgery
DX: M79.672 Pain in left foot (principal); M76.62 Achilles tendinitis, left leg; S92.211A Displaced fracture of cuboid bone of right foot, initial encounter for closed fracture
CPT/HCPCS: 97035; 97110; 97140; 97161; 97530